=== PATIENT | male | born 1985 | race Caucasian/White ===

== ENCOUNTER 2017-06-19 14:47 | Emergency (ER) | payer BC ==
--- NOTE | 2017-06-19 15:56 | EDM.PDOC ---
ED HPI GENERAL MEDICAL PROBLEM - General Chief Complaint: Cardiovascular Problem Stated Complaint: DIZZINESS/VERTIGO Time Seen by Provider: 06/19/17 15:46 Source of Information: Reports: Patient History Limitations: Reports: No Limitations - History of Present Illness INITIAL COMMENTS - FREE TEXT/NARRATIVE: Patient presents to the E.D. with intermittent episode of dizziness, racing heart, increased breathing rate, tunnel vision, and sensation of increased anxiety and choking sensation. This occurred at work and resolved quickly. He has not been under a lot of stress. No strenuous activities with onset. He's had similar symptoms over the past 3 days. All symptom has completely resolved with admission. Patient has a episode of vertigo in the past. States movement of the head and body made symptoms worse. Denies CP, n/v, diaphoresis, syncopal episode, fever. She has non productive cough, mild sore throat to which patient states is allergy related. Patient has no additional PMH and currently taking no medications. NO hx of DVT/ PE. Patient drinks two cups of coffee daily. Non smoker. Denies recreational drug use or excessive alcohol use. Their is a fmhx of CAD and stroke at late age. Treatments MANAGER ANDROID: Reports: Other (see below) Other Treatments MANAGER ANDROID: zofran - Related Data Allergies Allergy/AdvReac Type Severity Reaction Status Date / Time No Known Allergies Allergy Verified 06/19/17 15:01 Home Meds: Home Meds . [No Known Home Meds] 06/19/17 [History] Past Medical History - Past Surgical History Musculoskeletal Surgical History: Reports: Other (See Below) Other Musculoskeletal Surgeries/Procedures:: knee surgery Social & Family History - Family History Family Medical History: Noncontributory - Tobacco Use Smoking Status *Q: Never Smoker - Caffeine Use Caffeine Use: Reports: Coffee - Recreational Drug Use Recreational Drug Use: No ED ROS GENERAL - Review of Systems Review Of Systems: See Below Constitutional: Denies: Fever, Chills, Decreased Appetite HEENT: Reports: No Symptoms Respiratory: Reports: No Symptoms Cardiovascular: Reports: Palpitations. Denies: Chest Pain, Dyspnea on Exertion GI/Abdominal: Reports: No Symptoms : Reports: No Symptoms Musculoskeletal: Reports: No Symptoms Neurological: Reports: Dizziness. Denies: Headache, Numbness, Syncope, Tingling , Difficulty Walking Psychiatric: Reports: Anxiety ED EXAM, GENERAL - Physical Exam Exam: See Below Exam Limited By: No Limitations General Appearance: Alert, WD/WN, No Apparent Distress Eye Exam: Bilateral Eye: Nystagmus (none found), PERRL Ears: Normal External Exam, Normal Canal, Hearing Grossly Normal, Normal TMs Nose: Normal Inspection Throat/Mouth: Normal Inspection, Normal Oropharynx, Normal Voice, No Airway Compromise Head: Atraumatic, Normocephalic Neck: Normal Inspection, Supple Respiratory/Chest: No Respiratory Distress, Lungs Clear, Normal Breath Sounds, No Accessory Muscle Use, Chest Non-Tender Cardiovascular: Normal Peripheral Pulses, Regular Rate, Rhythm, No Murmur Peripheral Pulses: 4+: Radial (L), Radial (R) GI/Abdominal: Normal Bowel Sounds, Soft, Non-Tender, No Organomegaly Extremities: Normal Inspection, Non-Tender, No Pedal Edema Neurological: Alert, Oriented, CN II-XII Intact, Normal Cognition, Normal Gait, No Motor/Sensory Deficits Psychiatric: Normal Affect, Normal Mood Skin Exam: Warm, Dry, Intact, Normal Color Course - Vital Signs Last Recorded V/S: Last Vital Signs Temp 97.4 F 06/19/17 14:55 Pulse 79 06/19/17 17:38 Resp 16 06/19/17 17:38 BP 140/93 H 06/19/17 17:38 Pulse Ox 98 06/19/17 17:38 - Orders/Labs/Meds Labs: Laboratory Tests 06/19/17 06/19/17 06/19/17 Range/Units 15:55 15:55 16:10 WBC 7.31 (4.23-9.07) K/mm3 RBC 5.03 (4.63-6.08) M/mm3 Hgb 13.7 (13.7-17.5) gm/L Hct 38.3 L (40.1-51.0) % MCV 76.1 L (79.0-92.2) fl MCH 27.2 (25.7-32.2) pg MCHC 35.8 H (32.2-35.5) g/dl RDW Std Deviation 35.7 (35.1-43.9) fL Plt Count 241 (163-337) K/mm3 MPV 9.6 (9.4-12.3) fl Neut % (Auto) 77.3 H (34.0-67.9) % Lymph % (Auto) 13.7 L (21.8-53.1) % [place] % (Auto) 7.0 (5.3-12.2) % Eos % (Auto) 1.6 (0.8-7.0) Baso % (Auto) 0.3 (0.1-1.2) % Neut # (Auto) 5.65 H (1.78-5.38) K/mm3 Lymph # (Auto) 1.00 L (1.32-3.57) K/mm3 [place] # (Auto) 0.51 (0.30-0.82) K/mm3 Eos # (Auto) 0.12 (0.04-0.54) K/mm3 Baso # (Auto) 0.02 (0.01-0.08) K/mm3 Sodium 140 (136-145) mEq/L Potassium 3.8 (3.5-5.1) mEq/L Chloride 105 (98-107) mEq/L Carbon Dioxide 26 (21-32) mEq/L Anion Gap 12.8 (5-15) BUN 11 (7-18) mg/dL Creatinine 1.1 (0.7-1.3) mg/dL Est Cr Clr Drug Dosing 119.46 mL/min Estimated GFR (MDRD) > 60 (>60) mL/min BUN/Creatinine Ratio 10.0 L (14-18) Glucose 100 (74-106) mg/dL Calcium 8.9 (8.5-10.1) mg/dL Total Bilirubin 0.5 (0.2-1.0) mg/dL AST 23 (15-37) U/L ALT 37 (16-63) U/L Alkaline Phosphatase 80 (46-116) U/L Total Protein 7.3 (6.4-8.2) g/dl Albumin 3.8 (3.4-5.0) g/dl Globulin 3.5 gm/dL Albumin/Globulin Ratio 1.1 (1-2) TSH 3rd Generation 0.837 (0.358-3.74) uIU/mL Urine Opiates Screen Negative (NEGATIVE) Ur Buprenorphine Scrn Negative (NEGATIVE) Ur Oxycodone Screen Negative (NEGATIVE) Urine Methadone Screen Negative (NEGATIVE) Ur Propoxyphene Screen Negative (NEGATIVE) Ur Barbiturates Screen Negative (NEGATIVE) Ur Tricyclics Screen Negative (NEGATIVE) Ur Phencyclidine Scrn Negative (NEGATIVE) Ur Amphetamine Screen Negative (NEGATIVE) U Methamphetamines Scrn Negative (NEGATIVE) U Benzodiazepines Scrn Negative (NEGATIVE) U Cocaine Metab Screen Negative (NEGATIVE) U Marijuana (THC) Screen Negative (NEGATIVE) - Re-Assessments/Exams Free Text/Narrative Re-Assessment/Exam: Do believe patient's symptoms are more likely related to anxiety induced. He has no complaints at this time. He was evaluated at [facility] and was instructed to come to the ED. Will obtain basic labs including CBC, chem 14, urine drug tox, TSH, chest x-ray two-view, and EKG. X-ray of the chest reviewed with Dr. Manuel. Normal CXR. Final interpretation is pending. Labs reviewed: CBC and chemistry panel did not reveal any concerning findings. TSH WNL. Urine drug tox negative. Patient has been up and about with no issues per nursing. On reassessment, patient has no complaints. Discharge instructions as documented. Departure - Departure Time of Disposition: 17:33 Disposition: Home, Self-Care 01 Condition: Good Clinical Impression: Anxiety attack Instructions: Panic Attacks, [id number] Referrals: PCP,None [Primary Care Provider] - Forms: ED Department Discharge Additional Instructions: Please followup with PCP to discuss treatment for anxiety/depression. Refrain from alcohol beverages. Return to the E.D. for any new or worsening symptoms. Limit caffeine intake.
--- NOTE | 2017-06-20 16:00 | CR ---
Chest: Portable view of the chest was obtained. Comparison: No prior study. Heart size and mediastinum are normal. Lungs are clear. Minimal scoliosis is noted within the spine. Impression: 1. Nothing acute is appreciated on portable chest x-ray. Diagnostic code #1
== END 2017-06-19 17:40 | disposition home or self-care (01) ==
LOC: JD.ED 14:47
DX: F41.9 Anxiety disorder, unspecified (principal)
CPT/HCPCS: 36415; 71045; 71045-26; 80053; 80306; 84443; 85025; 93005; 93010; 99282-25; 99284-25